=== PATIENT | male | born 1995 | race Caucasian/White ===

== ENCOUNTER → 2020-11-21 | Outpatient (CLI) | payer OTHER ==
[2020-11-21 14:38] LABS: PLATELET COUNT, AUTOMATED 243 10^3/uL (150-450)
[2020-11-21 14:46] LABS: INR 1.01; PROTHROMBIN TIME 13.8 SECONDS (12.7-14.5)
[2020-11-21 14:47] LABS: PARTIAL THROMBOPLASTIN TIME 29.4 SECONDS (25.9-37.0)
== END ==
LOC: M LAB 13:33
PROVIDERS: ATTEND Physical Medicine & Rehabilitation
DX: Z01.810 Encounter for preprocedural cardiovascular examination (principal)

== ENCOUNTER → 2020-12-20 | Outpatient (CLI) | payer OTHER ==
--- NOTE | 2020-12-21 16:43 | REP ---
INDICATION: SOB. COMPARISON: None. TECHNIQUE: Water's, Davila, lateral and SMV views FINDINGS: Sinuses are well aerated and clear. No mucosal thickening or fluid levels are identified. No foreign body. The visualized osseous structures are intact and normal. IMPRESSION: Normal sinus radiograph series. <Electronically signed by Panchito Sam > 12/21/20 [id number]
== END ==
LOC: M PLALAB 12:10
PROVIDERS: ATTEND Internal Medicine
DX: R06.02 Shortness of breath (principal)

== ENCOUNTER → 2021-01-30 | Outpatient (REF) ==
--- NOTE | 2021-01-30 11:32 | REP ---
INDICATION: SOB. COMPARISON: 12/20/2020 TECHNIQUE: Four views FINDINGS: Multiple views of the paranasal sinuses show no abnormal soft tissue densities within any of the visualized paranasal sinuses. There are no air fluid levels. There is no lysis or sclerosis of the bony architecture surrounding the paranasal sinuses. There is no significant nasal septal deviation. The adenoidal soft tissues are within normal limits. There is no evidence of airway compromise. IMPRESSION: Unremarkable paranasal sinuses. No significant change compared to the prior exam. <Electronically signed by Mat Winkler > 01/30/21 1126
== END ==
LOC: M PLAIMG 09:50
PROVIDERS: ATTEND Internal Medicine
DX: R06.02 Shortness of breath (principal)